=== PATIENT | female | born 1970 | race Two or more races ===

== ENCOUNTER 2017-10-22 12:15 | Outpatient (CLI) | payer OTHER | END 2017-10-22 12:34 | disposition home or self-care (01) | LOC: NUCLEAR 12:15 → MAMO-SONO 13:15 → NUCLEAR 13:15 | DX: M81.0 Age-related osteoporosis without current pathological fracture (principal); Z13.820 Encounter for screening for osteoporosis; N63.10 Unspecified lump in the right breast, unspecified quadrant; N63.11 Unspecified lump in the right breast, upper outer quadrant; N64.4 Mastodynia; N83.00 Follicular cyst of ovary, unspecified side; N80.9 Endometriosis, unspecified; D25.9 Leiomyoma of uterus, unspecified; E03.8 Other specified hypothyroidism; E04.1 Nontoxic single thyroid nodule ==

== ENCOUNTER 2017-10-22 14:07 | Outpatient (CLI) | payer OTHER | END 2017-10-22 14:13 | disposition home or self-care (01) | LOC: MAMO-SONO 14:07 | DX: N64.4 Mastodynia (principal); N80.9 Endometriosis, unspecified; N83.00 Follicular cyst of ovary, unspecified side; D25.9 Leiomyoma of uterus, unspecified; Z12.31 Encounter for screening mammogram for malignant neoplasm of breast; E03.8 Other specified hypothyroidism; E04.1 Nontoxic single thyroid nodule ==